=== PATIENT | female | born 1995 | race Caucasian/White ===

== ENCOUNTER → 2017-09-02 | Outpatient (CLI) | payer SELFPAY | LOC: COL.RAD 08:57 | DX: R22.2 Localized swelling, mass and lump, trunk (principal) | CPT/HCPCS: Q9967 ==

== ENCOUNTER 2017-09-20 05:26 | Day surgery (SDC) | payer OTHER ==
[~2017-09-20] VITALS: Ht 157.5 cm; Wt 54.6 kg
[2017-09-20 06:03] VITALS: BP 104/68; PULSE 85; TEMP 97.5
[2017-09-20] MEDS ORDERED: APRI 0.15 MG-0.1 TAB PO (06:08)
[2017-09-20 08:15] VITALS: BP 98/64; PULSE 85; TEMP 98.1
[2017-09-20 08:30] VITALS: BP 101/69; PULSE 82
[2017-09-20] MEDS ORDERED: NORCO 325 MG-51 TAB PO (08:43)
[2017-09-20 08:45] VITALS: BP 96/45; PULSE 69
== END 2017-09-20 09:27 | disposition home or self-care (01) ==
LOC: SDCO 05:26
DX: L72.0 Epidermal cyst (principal); Z88.0 Allergy status to penicillin
CPT/HCPCS: J1956; J2704; J3010; J7120